=== PATIENT | male | born 1975 | race Caucasian/White ===

== ENCOUNTER 2017-07-17 23:25 | Emergency (ER) | payer MEDICAID ==
[2017-07-17 23:36] VITALS: BP 145/80
[2017-07-17] MEDS ORDERED: CYCLOBENZAPRINE HCL 10 MG TABLET PO ONE (23:52)
[2017-07-17] MEDS ORDERED: HYDROcodone/ACETAMINOPHEN 1 EACH TABLET PO ONE (23:52)
--- NOTE | 2017-07-17 23:52 | ERNOTE ---
Back Pain ER HPI Date of Service: 07/17/17 Presenting Symptoms: injury/pain to back Time Seen by Provider: 07/17/17 23:41 Source: patient Exam Limitations: no limitations Immunizations: IMMUNIZATION HX Immunizations Up to Date Yes History of Influenza Vaccine No Hx Pneumococcal Vaccination No Allergies/Adverse Reactions: Allergies No Known Allergies Allergy (Unverified 07/17/17 23:36) Home Medications: HOME MEDICATIONS Cyclobenzaprine HCl [Flexeril] 10 mg PO TID PRN #30 tab 07/17/17 [Last Taken Unknown] HYDROcodone/ACETAMINOPHEN [[place] 7.5-325 Tablet] 1 each PO QID #20 tablet [Last Taken Unknown] Narrative: patient has been bending over at work , went to bed tonight and developed spasms with radiation down left leg Timing: Reports: constant, getting worse Quality/Severity: Reports: moderate, sharpness, throbbing Location of pain: Reports: lower back, radiating to lf thigh/leg Activities at Onset: Reports: none Recent Injury?: Reports: no Possible Precipitating Factor: Reports: turning/bending Modifying Factors - (Improves): Reports: movement to left Modifying Factors - (Worsens): Reports: movement to left Associated Symptoms: Reports: difficulty walking Review of Systems - Review of Systems Constitutional: Present: See HPI EYE: Present: no symptoms reported ENT: Present: no symptoms reported Respiratory: Present: no symptoms reported Cardiology: Present: no symptoms reported Gastrointestinal/Abdominal: Present: no symptoms reported Genitourinary: Present: no symptoms reported Musculoskeletal: Present: back pain, muscle pain, muscle stiffness Neurological: Present: no symptoms reported Endocrine: Present: no symptoms reported Hematologic/Lymphatic: Present: no symptoms reported Psych: Present: no symptoms reported All Other Systems: All systems neg except as marked - Patient's Past Medical History Patient History - Medical: ADHD, Chronic Pain Patient History - Cardiac/Respiratory: No pertinent hx Patient History - Cancer: No Hx of Cancer Patient History - Surgical Procedures: Cholecystectomy Patient History - Other: None - Family History Family History:: no untoward family reactions to anesthesia, no family history of clotting disorders - Social History Living Situations: spouse Abuse History: No History of abuse Psych History: No pertinent hx Smoking Status: Current every day smoker Have you smoked in the past 12 months: Yes Do you dip or chew tobacco: No Alcohol Use: none Drug Use: none - Immunizations Immunizations Up to Date: Yes Hx Pneumococcal Vaccination: No History of Influenza Vaccine: No Physical Exam - Physical Exam General Appearance: Present: moderate distress Head Exam: Present: normal inspection, no evidence of injury Eye Exam: Normal inspection: bilateral, PERRL: bilateral, EOMI: bilateral Ears, Nose, Throat: Present: normal ENT inspection Neck: Present: normal inspection Respiratory: Present: no respiratory distress, normal breath sounds, no accessory muscle use, chest nontender Cardiovascular/Chest: Present: regular rate, rhythm, no murmur, normal peripheral pulses Peripheral Pulses: N=norm/S=strong/W=weak/B=bound/A=absent: Carotid (R): Normal , Carotid (L): Normal, Radial (R): Normal, Radial (L): Normal, Femoral (R): Normal, Femoral (L): Normal, Dorsalis-pedis (R): Normal, Dorsalis-pedis (L): Normal Gastrointestinal/Abdominal: Present: normal bowel sounds, nontender, nondistended, soft, no organomegaly Back Exam: Present: vertebral tenderness, decreased range of motion, muscle spasm Extremity Exam: Present: normal inspection, non-tender Neurological Exam: Present: alert, oriented, normal mood/affect, no motor/ sensory deficits DTR: N=norm/NB=norm/brisk/A=abs/DD=dull/dimin/HC=hyperactive: Bicep (R): Normal , Bicep (L): Normal, Tricep (R): Normal, Tricep (L): Normal, Knee (R): Normal, Knee (L): Normal, Ankle (R): Normal ED Progress - Vital Signs Patient's Vital Signs:: I have reviewed the patient's vital signs. Vital Signs: Vital Signs 07/17/17 23:29 Temperature 37.0 C Pulse Rate 88 Respiratory 16 Rate Blood Pressure 145/80 O2 Sat by Pulse 97 Oximetry - Progress/Reassessment Chief Complaint: Back Pain Progress:: Unchanged - Transfer of Care Expected Disposition: Discharge Departure Clinical Impression: Back pain at L4-L5 level, Sciatica of left side - Departure Disposition: Home self-care Condition: Fair Instructions: Low Back Sprain With Rehab-[facility] Prescriptions: Cyclobenzaprine HCl [Flexeril] 10 mg PO TID PRN #30 tab PRN Reason: MUSCLE SPASMS HYDROcodone/ACETAMINOPHEN [[place] 7.5-325 Tablet] 1 each PO QID #20 tablet
[2017-07-17] MEDS ORDERED: HYDROcodone/ACETAMINOPHEN 1 EACH TABLET ONE (23:54)
[2017-07-17] MEDS ORDERED: CYCLOBENZAPRINE HCL 10 MG TABLET ONE (23:55)
== END 2017-07-18 00:04 | disposition home or self-care (01) ==
LOC: ER 23:25
DX: M54.42 Lumbago with sciatica, left side (principal); F17.200 Nicotine dependence, unspecified, uncomplicated